=== PATIENT | male | born 1975 | race Caucasian/White ===

== ENCOUNTER 2023-04-22 07:29 | Emergency (ER) | payer MEDICAID ==
[~2023-04-22] VITALS: Ht 182.8 cm; Wt 72.6 kg
[2023-04-22 08:30] LABS: BASO % 0.3 % (0.0-1.0); EOS # 0.1 10*3/uL (0.0-0.4); EOS % 0.7 % (1.0-4.0); HEMATOCRIT 42.9 % (42.0-52.0); LYMPH # 1.2 10*3/uL (1.3-4.4); LYMPH % 8.5 % (27.0-41.0); MEAN CELL VOLUME 90.7 fl (80.0-94.0); MEAN CORPUSCULAR HGB 31.5 pg (27.0-31.0); MEAN CORPUSCULAR HGB CONC 34.7 g/dl (33.0-37.0); MEAN PLATELET VOLUME 9.1 fl (9.6-12.3); MONO # 1.3 10*3/uL (0.1-1.0); MONO % 9.6 % (3.0-9.0); NEUT % 80.7 % (47.0-73.0); PLATELET COUNT AUTOMATED 332 10*3/uL (130-400); RED BLOOD COUNT 4.73 10*6/uL (4.50-5.90); RED CELL DISTRI WIDTH 12.2 % (0-14.5); WHITE BLOOD COUNT 13.6 10*3/uL (4.8-10.8)
[2023-04-22 08:58] LABS: ALKALINE PHOSPHATASE 83 U/L (46-116); BUN 8 mg/dl (9-23); CHLORIDE 103 mmol/L (98-107); LIPASE 29 U/L (12-53); POTASSIUM 4.1 mmol/L (3.4-5.1); SGPT/ALT 19 U/L (10-49); TOTAL PROTEIN 6.9 gm/dL (6.0-8.0)
[2023-04-22 09:39] LABS: BILIRUBIN Negative (Negative); BLOOD Negative (Negative); CLARITY Clear (Clear); COLOR Dark Yellow (Yellow); GLUCOSE Negative (Negative); KETONE Trace (Negative); LEUKO ESTERASE Trace (Negative); NITRITE Negative (Negative)
[2023-04-22 10:02] LABS: BACTERIA TRACE; CALCIUM OXALATE CRYSTALS 1+; EPITHELIAL CELLS 0-2; MUCOUS TRACE
[2023-04-22] MEDS ORDERED: HYDROCODONE-AC1 EAC1 PO (11:42)
[2023-04-22] MEDS ORDERED: CIPRO500 MG PO (11:42)
[2023-04-22] MEDS ORDERED: FLOMAX0.4 MG PO (11:42)
[2023-04-22] MEDS ORDERED: PHENERGAN25 M3 PO (11:42)
[2023-04-22] MEDS ORDERED: Motrin,Rufen800 MG PO (11:42)
== END 2023-04-22 11:47 | disposition home or self-care (01) ==
LOC: ED 07:29
PROVIDERS: Emergency Medicine
DX: N20.1 Calculus of ureter (principal); Z87.442 Personal history of urinary calculi